=== PATIENT | male | born 1960 | race Caucasian/White ===

== ENCOUNTER 2019-07-03 08:55 | Day surgery (SDC) | payer BC ==
[2019-07-02 13:08] LABS: BASOPHILS % (AUTO) 0.4 % (0-1); EOSINOPHILS # (AUTO) 0.1 X10'3 (0-0.9); EOSINOPHILS % (AUTO) 1.4 % (0-6); HEMATOCRIT 50.6 % (42.0-52.0); LYMPHOCYTES # (AUTO) 1.9 X10'3 (1.1-4.8); LYMPHOCYTES % (AUTO) 26.1 % (21-51); MEAN CORPUSCULAR HEMOGLOBIN 29.1 PG (27.0-31.0); MEAN CORPUSCULAR HGB CONC 33.7 g/dL (33.0-36.5); MEAN CORPUSCULAR VOLUME 86.3 FL (78-98); MONOCYTES # (AUTO) 0.8 X10'3 (0-0.9); MONOCYTES % (AUTO) 11.3 % (2-12); NEUTROPHILS # (AUTO) 4.5 X10'3 (1.8-7.7); NEUTROPHILS % (AUTO) 60.8 % (42-75); PLATELET COUNT 242 X10'3 (140-440); RED BLOOD COUNT 5.86 X10'6 (4.70-6.10); RED CELL DISTRIBUTION WIDTH 14.7 % (11.5-14.5); WHITE BLOOD COUNT 7.4 X10'3 (4.5-11.0)
[2019-07-02 13:21] LABS: PARTIAL THROMBOPLASTIN TIME 27 SECONDS (22-32)
[2019-07-02 14:49] LABS: ALBUMIN 4.2 G/DL (3.4-5.0); ANION GAP 9 (8-16); BLOOD UREA NITROGEN 11 MG/DL (7-18); BUN/CREATININE RATIO 13.3 (5.4-32.0); CALCIUM 9.4 MG/DL (8.5-10.1); CHLORIDE 105 MMOL/L (99-107); CREATININE 0.83 MG/DL (0.60-1.10); GLUCOSE 95 MG/DL (70-104); POTASSIUM 4.9 MMOL/L (3.5-5.1); SODIUM 142 MMOL/L (135-145); TOTAL CARBON DIOXIDE 27.7 MMOL/L (24-32); eGFR > 90 ML/MIN
[~2019-07-03] VITALS: Ht 200.7 cm; Wt 113.0 kg
[2019-07-03] VITALS (10 sets, daily range): BP systolic 116–144; BP diastolic 58–98
[2019-07-03] MEDS ORDERED: acetylcysteine 200 MG/ml 4ml vial PO PRN (09:15)
[2019-07-03] MEDS ORDERED: diphenhydrAMINE 25mg capsule PO PRN (09:15)
[2019-07-03] MEDS ORDERED: normal saline 1,000 ML IV SCH (09:15)
[2019-07-03] MEDS ORDERED: SOTA80TA73 PO (09:33)
[2019-07-03] MEDS ORDERED: APIX5TAB3 PO (09:33)
[2019-07-03] MEDS ORDERED: LIDOcaine/PRILOcaine 5gm cream TP ONE (10:10)
[2019-07-03] MEDS ORDERED: FLU VACC QS 2019-20 (6 MOS UP) 60 MCG/0.5 ML VIAL IMVAC ONE (11:10)
[2019-07-03] MEDS ORDERED: LIDOcaine 1% (10mg/ml)w/preservative injection 20ml MDV ONE (12:34)
[2019-07-03] MEDS ORDERED: fentaNYL/PF 50MCG/1 ML 2ML syringe ONE (12:34)
[2019-07-03] MEDS ORDERED: verapamil 2.5 mg/ml inj IV ONE (12:34)
[2019-07-03] MEDS ORDERED: nitroGLYCERIN-Tridil 50MG/D5W 250 ML IV ONE (12:34)
[2019-07-03] MEDS ORDERED: midazolam 2 mg/2 ml injection ONE (12:34)
[2019-07-03] MEDS ORDERED: heparin 1,000unit/ml 10ml vial 10 ML ONE (12:35)
[2019-07-03] MEDS ORDERED: iohexol 350 MG/ML 50ML vial IV ONE (12:35)
[2019-07-03] MEDS ORDERED: iohexol 350MG/ML 100ml bottle IV ONE (12:35)
[2019-07-03] MEDS ORDERED: normal saline 1000ml 1,000 ML IV SCH (15:05)
[2019-07-03 15:41] LABS: ISTAT Hct ART 47 %PCV (42-52); ISTAT Hct MIX 47 %PCV (42-52); ISTAT O2 SATURATION ARTERIAL 98 % (95-98); ISTAT O2 SATURATION MIX VENOUS 67 % (60-80); ISTAT SOURCE ART; ISTAT SOURCE MIX
== END 2019-07-03 18:55 | disposition home or self-care (01) ==
LOC: SSTAY O 08:55
PROVIDERS: ATTEND Internal Medicine Cardiovascular Disease
DX: R94.39 Abnormal result of other cardiovascular function study (principal); I25.10 Atherosclerotic heart disease of native coronary artery without angina pectoris; G47.33 Obstructive sleep apnea (adult) (pediatric); I48.91 Unspecified atrial fibrillation; I35.0 Nonrheumatic aortic (valve) stenosis; E78.5 Hyperlipidemia, unspecified; Z79.899 Other long term (current) drug therapy
CPT/HCPCS: 36415; 80048; 82803; 85014; 85025; 85610; 85730; 93460; 99152; 99153; C1769; C1894; J1644; J2001; J2250; J3010; J7030; Q0163; Q9967; 93458; A4620; A5120; A6258; J3490; Q2037